=== PATIENT | female | born 1970 | race Caucasian/White ===

== ENCOUNTER 2019-10-01 10:25 | Inpatient (IN) | payer OTHER ==
[~2019-10-01] VITALS: Ht 175.3 cm; Wt 113.4 kg
== END 2019-10-21 17:14 | DRG 460 ==
LOC: O/R 10-19 05:05 → SURH 10-19 05:05 → RECOVERY 10-19 07:00 → SURH 10-19 13:24
PROVIDERS: ADMIT Neurological Surgery; ATTEND Neurological Surgery
PROC: 0SG33J1 Fusion of Lumbosacral Joint with Synthetic Substitute, Posterior Approach, Posterior Column, Percutaneous Approach (ICD-10-PCS; 2019-10-19)
PROC: 0SB23ZZ Excision of Lumbar Vertebral Disc, Percutaneous Approach (ICD-10-PCS; principal; 2019-10-19 07:00)
DX: M48.062 Spinal stenosis, lumbar region with neurogenic claudication (principal); M47.897 Other spondylosis, lumbosacral region

== ENCOUNTER 2019-10-16 09:24 | Outpatient (CLI) | payer OTHER | END 2019-10-16 09:30 | disposition home or self-care (01) | LOC: RAD 09:24 | PROVIDERS: ATTEND Neurological Surgery | DX: M47.26 Other spondylosis with radiculopathy, lumbar region (principal); M47.896 Other spondylosis, lumbar region ==

== ENCOUNTER → 2019-11-27 | Outpatient (CLI) | payer OTHER | END | disposition home or self-care (01) | LOC: RAD 09:03 | PROVIDERS: ATTEND Neurological Surgery | DX: M48.062 Spinal stenosis, lumbar region with neurogenic claudication (principal) ==

== ENCOUNTER 2020-03-03 08:30 | Outpatient (CLI) | payer OTHER | END 2020-03-03 08:37 | disposition home or self-care (01) | LOC: RAD 08:30 | PROVIDERS: ATTEND Neurological Surgery | DX: M46.06 Spinal enthesopathy, lumbar region (principal); M54.5 Low back pain ==